=== PATIENT | female | born 1950 | race Two or more races ===

== ENCOUNTER 2017-12-31 12:40 | Outpatient (CLI) | payer MEDICARE, OTHER | END 2017-12-31 23:59 | disposition home or self-care (01) | LOC: WOU 12:40 | PROVIDERS: ATTEND Podiatrist Foot & Ankle Surgery | DX: E11.52 Type 2 diabetes mellitus with diabetic peripheral angiopathy with gangrene (principal); I96 Gangrene, not elsewhere classified; Z79.4 Long term (current) use of insulin; E11.42 Type 2 diabetes mellitus with diabetic polyneuropathy; R60.0 Localized edema; Z94.0 Kidney transplant status; I10 Essential (primary) hypertension; E07.9 Disorder of thyroid, unspecified; L03.032 Cellulitis of left toe | CPT/HCPCS: A6402; G0463; Z7610 ==

== ENCOUNTER 2018-01-02 13:12 | Outpatient (CLI) | payer MEDICARE, OTHER | END 2018-01-02 23:59 | disposition home or self-care (01) | LOC: WOU 13:12 | PROVIDERS: ATTEND Podiatrist Foot & Ankle Surgery | DX: E11.52 Type 2 diabetes mellitus with diabetic peripheral angiopathy with gangrene (principal); E11.621 Type 2 diabetes mellitus with foot ulcer; L97.529 Non-pressure chronic ulcer of other part of left foot with unspecified severity; Z79.4 Long term (current) use of insulin; Z94.0 Kidney transplant status | CPT/HCPCS: A6402; G0463; Z7610 ==